=== PATIENT | female | born 1990 | race African-American/Black ===

== ENCOUNTER 2017-03-17 10:38 | Inpatient (IN) | payer MEDICAID ==
[~2017-03-17] VITALS: Ht 172.7 cm; Wt 73.0 kg
[2017-03-17] VITALS (10 sets, daily range): BP systolic 99–150; BP diastolic 49–79; PULSE 57–111; RESP 16–20; TEMP 97.2; O2SAT 99–100
[~2017-03-17 10:38] MED LIST: IBUP-232 PO; ONDA4 PO; OXYC1TAB63 PO; PREN0.01 PO; Z.0.NO CURRENT MEDS
[2017-03-17] MEDS ORDERED: LACTATED RINGER'S 1000 ML INJ 1,000 ML IV ONE (11:30)
[2017-03-17] MEDS ORDERED: LACTATED RINGER'S 1000 ML INJ 1,000 ML IV SCH (12:00)
[2017-03-17 12:01] LABS: AUTOMATED NEUTROPHIL # 6.7 TH/MM3 (1.8-7.7); BASOPHIL % 0.4 % (0.0-2.0); EOSINOPHIL # 0.3 TH/MM3 (0-0.4); EOSINOPHIL % 2.9 % (0.0-4.0); HEMATOCRIT 32.7 % (35.0-46.0); HEMO FLAGS DIFF FINAL; LYMPH % 17.5 % (9.0-44.0); LYMPHOCYTE # 1.6 TH/MM3 (1.0-4.8); MEAN CELL VOLUME 85.9 FL (80.0-100.0); MEAN CORPUSCULAR HEMOGLOBIN 27.7 PG (27.0-34.0); MEAN CORPUSCULAR HGB CONC 32.3 % (32.0-36.0); MONO % 6.2 % (0.0-8.0); PLATELET COUNT 344 TH/MM3 (150-450); WHITE BLOOD COUNT 9.2 TH/MM3 (4.0-11.0)
[2017-03-17 12:24] LABS: BACTERIA, URINE OCC /hpf; BLOOD, URINE NEG (NEG); COMMENT (UR) CULT NOT INDICATED; CULTURE IF INDICATED CULT NOT INDICATED; GLUCOSE,URINE NEG (NEG); KETONE, URINE NEG (NEG); MUCUS URINE FEW /lpf (OCC); NITRITE,URINE NEG (NEG); PH, URINE 6.5 (5.0-8.5); SQUAMOUS EPITHELIAL CELL URINE 3 /hpf (0-5); URINE COLOR LIGHT-YELLOW (YELLW/STRAW)
[2017-03-17] MEDS ORDERED: ceFAZolin 2 GM PREMIX 50 ML IV SCH (12:30)
[2017-03-17] MEDS ORDERED: ACETAMINOPHEN 1000 MG/100 ML 100 ML IV ONE ×2 (12:35→14:15)
[2017-03-17] MEDS ORDERED: CITRIC ACID-SODIUM CITRATE LIQ 30 ML UDC PO SCH (13:00)
[2017-03-17] MEDS ORDERED: DEXAMETHASONE SOD PHOS PF 10 MG/ML VIAL ONE (13:31)
[2017-03-17] MEDS ORDERED: BUPIVACAINE HCL PF 0.5% 30 ML VIAL ONE (13:31)
[2017-03-17] MEDS ORDERED: SODIUM CHLORIDE 0.9% 20 ML VIAL ONE (13:31)
--- NOTE | 2017-03-17 14:13 | PD.OB.DELI ---
Procedure Note Section Procedure Pre Op Diagnosis: (1) History of section, low transverse Post Op Diagnosis: Performed by Festus Davis Procedure: Repeat Low Transverse Sec Indication for delivery: Desired elective repeat Previous condition: None Informed consent obtained: For anesthesia, For procedure Confirmed correct: Patient, Procedure, Site, Time-out taken Anesthesia: Spinal Medication prior to procedure: As documented in eMAR Monitoring during procedure: Blood pressure monitoring Urinary catheter: Inserted using sterile technique Sterile preparation: Duraprep Position: Supine with wedge to left side Operative Features Skin Incision: Transverse Uterine Incision: Low transverse w/knife / blunt ext Membranes Ruptured: Artificially Presentation: Occiput anterior Delivery date: Mar 17, 2017 Delivery time: 13:15 Delivery of : Uneventful : Male One Minute : 8 Five Minute : 9 Weight: 7/7 Status of infant: Viable, Cord blood Placenta delivered: Intact Estimated blood loss: 500 Procedure tolerated: Well Maternal Condition: Stable Condition: Stable Procedure in detail Patient was taken to the operating theater and identified by name band and verbally. A timeout was taken and everyone was in agreement. A spinal anesthetic was administered and a Alejo catheter inserted under sterile technique. She was prepped and draped in the usual sterile fashion. Pfannenstiel incision was made and carried down to the fascia. The fascia was taken off the rectus muscle by blunt and sharp dissection. The peritoneum was entered under direct vision without difficulty. The incision was extended with care to avoid the urinary bladder latter flap was created in the usual fashion. The uterus was then incised along the lower uterine segment and taken down in the midportion until the uterine cavity was entered. Incision was extended bluntly vertex grasped with fundal pressure we were unable to deliver the vertex therefore a Kiwi suction device was used and the vertex delivered without difficulty the hypopharynx and nasopharynx were suctioned to manger the infant delivered without difficulty. It was doubly clamped and cut and handed to the resuscitation team present. Cord blood was obtained and the placenta was delivered manually. The uterus was delivered from the abdomen. Uterine incision was then repaired with 0 Vicryl in a running locking fashion in 2 layers the second layer imbricating the first. Sac was cleaned of blood and debris. The uterus is then delivered back into the abdomen are surgical sites were static rectus muscles were reapproximated together with 0 Vicryl in a running fashion. This repaired with 0 Vicryl from lateral to midline bilaterally in a running fashion the subcutaneous was repaired with 3-0 Vicryl and so cutaneous manner the approximated with a 4-0 Monocryl in a subcuticular manner sterilely dressed and she was taken to the recovery room in satisfactory condition. Lucy Davis MD Mar 17, 2017 14:13
[2017-03-17] MEDS ORDERED: ZOLPIDEM TARTRATE 5 MG TAB PO PRN (14:15)
[2017-03-17] MEDS ORDERED: ONDANSETRON HCL 4 MG/2 ML VIAL IV PUSH PRN (14:15)
[2017-03-17] MEDS ORDERED: SODIUM CHLORIDE 0.9% FLUSH 10 ML FLUSH IV FLUSH PRN (14:15)
[2017-03-17] MEDS ORDERED: SIMETHICONE 80 MG CHEWABLE TAB PO PRN (14:15)
[2017-03-17] MEDS ORDERED: OXYTOCIN 30 UNITS-500ML PREMIX 500 ML IV ONE ×2 (14:15)
[2017-03-17] MEDS ORDERED: DOCUSATE SODIUM 50 MG/SENNA 8.6 MG TAB PO PRN (14:15)
[2017-03-17] MEDS ORDERED: TH S8.6T (14:42)
[2017-03-17] MEDS ORDERED: FERR325T18 PO (14:43)
[2017-03-17] MEDS ORDERED: ONDANSETRON HCL 4 MG/2 ML VIAL ONE (15:18)
[2017-03-17] MEDS ORDERED: KETOROLAC TROMETHAMINE 30 MG/ML (IVP) VIAL ONE (15:33)
[2017-03-17] MEDS ORDERED: KETOROLAC TROMETHAMINE 60 MG/2 ML (IM) VIAL IM ONE (16:00)
--- NOTE | 2017-03-17 18:08 | HHI.HP ---
HPI Chief Complaint Repeat section Date Seen: Mar 17, 2017 Time Seen: 12:22 Travel History International Travel<30 Days: No Contact w/Intl Traveler<30Days: No Known Affected Area: No History of Present Illness HPI This is a 26-year-old female who is 39 weeks today and had a previous section and has declined a after we discussed the risks benefits and alternatives has decided to go with a repeat section Weeks Gestation: 39 Para: 1 : 4 History Past Medical History Narrative Medical Anemia Obstetric History Obstetric History 4 para 1 Past Surgical History Narrative Surgical section 2016 Family History Family History: Negative Social History Alcohol Use: No Tobacco Use: No Substance Abuse: No Allergies-Medications (Allergen,Severity, Reaction): Coded Allergies: Sulfa (Sulfonamide Antibiotics) (Unverified Allergy, Mild, HIVES, 12/10/16) Home Meds Active Scripts Oxycodone-Acetaminophen (Oxycodone-Acetaminophen) 5-325 mg Tab, 1 TAB PO Q4H for moderate pain, #30 TAB Prov:Lucy Davis MD 03/20/16 Ibuprofen (Ibuprofen) 600 Mg Tab, 600 MG PO Q6H for Pain Management, #30 TAB 2 Refills Prov:Lucy Davis MD 03/20/16 Ondansetron Hcl (Zofran 4 Mg Tab) 4 Mg Tab, 4 MG PO Q6HR Y for NAUSEA OR VOMITING, #12 TAB 0 Refills Prov:Kleber Brown MD 07/25/15 Multivit/Min/Fol Ac/Iron/Pren ( Vit ( Plus)) 27 Mg Iron-1 Mg Tab , 1 TAB PO DAILY, #30 Prov:CHEL DASILVA M.D. 06/02/10 Reported Medications Ferrous Sulfate (Ferrous Sulfate) 325 Mg (65 Mg Iron) Tablet, 325 MG PO DAILY for Nutritional Supplement, #30 TAB 0 Refills 03/17/17 Sennosides/Docusate Sodium (Stool Softener Tablet) 8.6 Mg-50 Mg Tablet 03/17/17 Miscellaneous (No Current Meds) Misc 06/02/10 Review of Systems General / Constitutional: Weight Gain Physical Exam Vital Signs Date Time Temp Pulse Resp B/P (MAP) Pulse Ox O2 Delivery O2 Flow Rate FiO2 03/17/17 15:50 97.2 03/17/17 15:20 57 16 150/74 (99) 99 03/17/17 14:53 71 16 123/72 (89) 100 03/17/17 14:38 100 03/17/17 14:22 67 18 99/49 (66) 100 03/17/17 10:56 111 129/79 (96) Narrative GENERAL: Well-nourished, well-developed patient. SKIN: Warm and dry. HEAD: Normocephalic and atraumatic. EYES: No scleral icterus. No injection or drainage. ENT: No nasal drainage noted. Mucous membranes pink. Airway patent. NECK: Supple, trachea midline. No JVD. CARDIOVASCULAR: Regular rate and rhythm without murmurs, gallops, or rubs. RESPIRATORY: Breath sounds equal bilaterally. No accessory muscle use. BREASTS: Bilateral exam showed no masses , no retractions, no nipple discharge. ABDOMEN/GI: Abdomen soft, non-tender, bowel sounds present, no rebound, no guarding scar well-healed Gravid to [39-] weeks size Fundal Height: [39-] GENITOURINARy deferred FHT's: Category: [1-] Baseline: [-] Reactive: [-] Variability: [-] Decels: [-] EXTREMITIES: No cyanosis or edema. BACK: Nontender without obvious deformity. No CVA tenderness. NEUROLOGICAL: Awake and alert. Motor and sensory grossly within normal limits. Five out of 5 muscle strength in all muscle groups. Normal speech. Caprini VTE Risk Assessment Caprini VTE Risk Assessment: Mod/High Risk (score >= 2) Caprini Risk Assessment Model Point Value = 1 Point Value = 2 Point Value = 3 Point Value = 5 Age 41-60 Minor surgery BMI > 25 kg/m2 Swollen legs Varicose veins or History of unexplained or recurrent spontaneous Oral contraceptives or hormone replacement Sepsis (< 1 month) Serious lung disease, including pneumonia (< 1 month) Abnormal pulmonary function Acute myocardial infarction Congestive heart failure (< 1 month) History of inflammatory bowel disease Medical patient at bed rest Age 61-74 Arthroscopic surgery Major open surgery (> 45 min) Laparoscopic surgery (> 45 min) Malignancy Confined to bed (> 72 hours) Immobilizing plaster cast Central venous access Age >= 75 History of VTE Family history of VTE Factor V Leiden Prothrombin [id number] Lupus anticoagulant Anticardiolipin antibodies Elevated serum homocysteine Heparin-induced thrombocytopenia Other congenital or acquired thrombophilia Stroke (< 1 month) Elective arthroplasty Hip, pelvis, or leg fracture Acute spinal cord injury (< 1 month) Prophylaxis Regimen Total Risk Factor Score Risk Level Prophylaxis Regimen 0-1 Low Early ambulation 2 Moderate Order ONE of the following: *Sequential Compression Device (SCD) *Heparin 5000 units SQ BID 3-4 Higher Order ONE of the following medications: *Heparin 5000 units SQ TID *Enoxaparin/Lovenox 40 mg SQ daily (WT < 150 kg, CrCl > 30 mL/min) *Enoxaparin/Lovenox 30 mg SQ daily (WT < 150 kg, CrCl > 10-29 mL/min) *Enoxaparin/Lovenox 30 mg SQ BID (WT < 150 kg, CrCl > 30 mL/min) AND/OR *Sequential Compression Device (SCD) 5 or more Highest Order ONE of the following medications: *Heparin 5000 units SQ TID (Preferred with Epidurals) *Enoxaparin/Lovenox 40 mg SQ daily (WT < 150 kg, CrCl > 30 mL/min) *Enoxaparin/Lovenox 30 mg SQ daily (WT < 150 kg, CrCl > 10-29 mL/min) *Enoxaparin/Lovenox 30 mg SQ BID (WT < 150 kg, CrCl > 30 mL/min) AND *Sequential Compression Device (SCD) Data Data Vital Signs Reviewed: Yes Orders Orders Admit To Inpatient (03/17/17 ) Code Status (03/17/17 11:30) Lactated Ringer's 1000 Ml Inj (Lr 1000 M (03/17/17 11:30) Lactated Ringer's 1000 Ml Inj (Lr 1000 M (03/17/17 12:00) Cefazolin 2 Gm Premix (Ancef 2 Gm Premix (03/17/17 12:30) Citric Acid-Sodium Citrate Liq (Bicitra (03/17/17 13:00) Type And Screen (03/17/17 11:30) Complete Blood Count With Diff (03/17/17 11:30) Urinalysis - C+S If Indicated (03/17/17 11:30) Drug Screen, Random Urine (03/17/17 11:30) Inpatient Certification (03/17/17 ) Ywymwgxf-Rbz-Nxdsw-Iron Prenat (Stuartna (03/18/17 09:00) Acetaminophen 1000 Mg/100 Ml (irmev 10 (03/17/17 12:35) Bupivacaine Pf 0.5% Inj (Marcaine Pf 0.5 (03/17/17 13:31) Sodium Chloride 0.9% Inj (Sodium Chlorid (03/17/17 13:31) Dexamethasone Pf Inj (Decadron Pf Inj) (03/17/17 13:31) Fentanyl Inj (Fentanyl Inj) (03/17/17 14:07) Oxytocin 30 Units-500ml Premix (Pitocin (03/17/17 14:15) Vital Signs (Adult) Q4HX24,Q12H (03/17/17 14:13) Activity Bed Rest (03/17/17 14:13) ^ Discontinue (03/18/17 14:13) Remove Dressing (03/18/17 14:13) ^ Rhogam (03/17/17 14:13) Diet Regular Basic (03/17/17 Dinner) Lactated Ringer's 1000 Ml Inj (Lr 1000 M (03/17/17 19:13) Oxytocin 30 Units-500ml Premix (Pitocin (03/17/17 14:15) Oxytocin 30 Units-500ml Premix (Pitocin (03/18/17 00:15) Sodium Chloride 0.9% Flush (Ns Flush) (03/17/17 21:00) Sodium Chloride 0.9% Flush (Ns Flush) (03/17/17 14:15) Simethicone Chew (Mylicon Chew) (03/17/17 14:15) Acetaminophen 1000 Mg/100 Ml (Ofirmev 10 (03/17/17 14:15) Ibuprofen (Motrin) (03/17/17 14:15) Oxycodone-Acetamin 5-325 Mg (Percocet (03/17/17 14:15) Oxycodone-Acetamin 5-325 Mg (Percocet (03/17/17 14:15) Cefazolin Inj (Ancef Inj) (03/17/17 21:00) Docusate Sodium-Senna (Lida-Colace) (03/17/17 14:15) Zolpidem (Ambien) (03/17/17 14:15) Pddwruq-Vgfym-Cmufluk Inj (M-M-R Ii Inj) (03/18/17 16:00) Ecvo-Oxx-Qqxplq (Booster) Inj (Boostrix (03/18/17 16:00) Complete Blood Count With Diff (03/18/17 06:00) Ondansetron Inj (Zofran Inj) (03/17/17 14:15) Remove Urinary Catheter .ONCE (03/18/17 14:13) Ondansetron Inj (Zofran Inj) (03/17/17 15:18) Ketorolac Inj (Toradol Inj) (03/17/17 15:33) ^ No Systemic Narcotics (03/17/17 ) ^ Epidural Alert (03/17/17 ) Anticoagulant Alert (03/17/17 ) ^ Treatment Of Side Effects (03/17/17 ) ^ Discontinue Following Orders (03/17/17 ) ^ Monitor (03/17/17 ) Notify Dr: Respiratory Rate (03/17/17 ) ^ Notify Of These Side Effects (03/17/17 ) Ketorolac Inj (Toradol Inj) (03/17/17 16:00) Group B Strep: Negative Labs Laboratory Tests Test 03/17/17 10:35 03/17/17 11:16 Urine Color LIGHT-YELLOW Urine Turbidity CLEAR Urine pH 6.5 Urine Specific [place] 1.010 Urine Protein NEG Urine Glucose (UA) NEG Urine Ketones NEG Urine Occult Blood NEG Urine Nitrite NEG Urine Bilirubin NEG Urine Urobilinogen LESS THAN 2.0 Urine Leukocyte Esterase LARGE Urine RBC LESS THAN 1 Urine WBC 5 Urine Squamous Epithelial Cells 3 Urine Bacteria OCC Urine Mucus FEW Microscopic Urinalysis Comment CULT NOT INDICATED Urine Opiates Screen NEG Urine Barbiturates Screen NEG Urine Amphetamines Screen NEG Urine Benzodiazepines Screen NEG Urine Cocaine Screen NEG Urine Cannabinoids Screen NEG White Blood Count 9.2 Red Blood Count 3.80 Hemoglobin 10.5 Hematocrit 32.7 Mean Corpuscular Volume 85.9 Mean Corpuscular Hemoglobin 27.7 Mean Corpuscular Hemoglobin Concent 32.3 Red Cell Distribution Width 18.0 Platelet Count 344 Mean Platelet Volume 7.4 Neutrophils (%) (Auto) 73.0 Lymphocytes (%) (Auto) 17.5 Monocytes (%) (Auto) 6.2 Eosinophils (%) (Auto) 2.9 Basophils (%) (Auto) 0.4 Neutrophils # (Auto) 6.7 Lymphocytes # (Auto) 1.6 Monocytes # (Auto) 0.6 Eosinophils # (Auto) 0.3 Basophils # (Auto) 0.0 CBC Comment DIFF FINAL Differential Comment Assessment/Plan Assessment and Plan 1. Uterine at 39 weeks 2. section desires repeat 3. She have anemia very difficult time getting her in to the garment folder. We will check her postop white count and act on that accordingly Lucy Davis MD Mar 17, 2017 18:08
[2017-03-17] MEDS ORDERED: PROMETHAZINE INJ 25 MG/ML VIAL IM PRN (18:15)
[2017-03-17] MEDS: SODIUM CHLORIDE 0.9% FLUSH 10 ML FLUSH IV FLUSH SCH (21:00)
[2017-03-17] MEDS: LACTATED RINGER'S 1000 ML INJ 1,000 ML IV SCH (21:45)
[2017-03-17] MEDS: IBUPROFEN 600 MG TAB PO PRN (21:52)
[2017-03-18] VITALS (7 sets, daily range): BP systolic 99–121; BP diastolic 49–78; PULSE 68–87; RESP 16–18; TEMP 98.1–98.7
[2017-03-18] MEDS ORDERED: OXYTOCIN 30 UNITS-500ML PREMIX 500 ML IV PRN (00:15)
[2017-03-18] MEDS: LACTATED RINGER'S 1000 ML INJ 1,000 ML IV SCH (04:34)
[2017-03-18] MEDS: IBUPROFEN 600 MG TAB PO PRN ×3 (05:10→19:26)
[2017-03-18] MEDS: oxyCODONE/ACETAMINOPHEN 5 MG/325 MG TAB PO PRN ×4 (05:10→19:26)
[2017-03-18 06:00] LABS: AUTOMATED NEUTROPHIL # 13.3 TH/MM3 (1.8-7.7); BASOPHIL % 0.1 % (0.0-2.0); HEMATOCRIT 27.2 % (35.0-46.0); HEMO FLAGS DIFF FINAL; LYMPH % 9.5 % (9.0-44.0); LYMPHOCYTE # 1.5 TH/MM3 (1.0-4.8); MEAN CELL VOLUME 85.9 FL (80.0-100.0); MEAN CORPUSCULAR HEMOGLOBIN 27.9 PG (27.0-34.0); MEAN CORPUSCULAR HGB CONC 32.5 % (32.0-36.0); MONO % 7.1 % (0.0-8.0); NEUT % 83.3 % (16.0-70.0); PLATELET COUNT 304 TH/MM3 (150-450); RED BLOOD COUNT 3.16 MIL/MM3 (4.00-5.30); RED CELL DISTRIBUTION WIDTH 17.6 % (11.6-17.2)
[2017-03-18] MEDS ORDERED: MULTIVIT/MIN/PREN/FOL AC/IRON PRENATAL TAB PO SCH (09:00)
--- NOTE | 2017-03-18 10:13 | HHI.OB ---
Subjective Post Operative Day: 1 Objective Vitals/I&O Vital Signs Date Time Temp Pulse Resp B/P (MAP) Pulse Ox O2 Delivery O2 Flow Rate FiO2 03/18/17 08:00 78 112/49 (70) 03/18/17 08:00 98.3 68 16 112/71 (85) 03/18/17 04:30 98.7 87 18 99/56 (70) 03/18/17 03:30 16 03/18/17 01:30 18 03/18/17 00:30 98.1 03/18/17 00:30 106/78 (87) 03/18/17 00:30 105/64 (78) 03/17/17 23:30 20 03/17/17 22:30 18 03/17/17 21:30 18 03/17/17 19:30 20 03/17/17 15:50 97.2 03/17/17 15:20 57 16 150/74 (99) 99 03/17/17 14:53 71 16 123/72 (89) 100 03/17/17 14:38 100 03/17/17 14:22 67 18 99/49 (66) 100 03/17/17 10:56 111 129/79 (96) Result Diagram: 03/18/17 0431 Objective Remarks GENERAL: Well-nourished, well-developed patient. CARDIOVASCULAR: Regular rate and rhythm without murmurs, gallops, or rubs. RESPIRATORY: Breath sounds equal bilaterally. No accessory muscle use. ABDOMEN/GI: Abdomen soft, non-tender, bowel sounds present. Incision: dressing, Clean, dry and intact. Fundus: Firm, non-tender at umbilicus. GENITOURINARY: Light to moderate bleeding. EXTREMITIES: No cyanosis or edema, non-tender, without signs of DVT. Medications and IVs Current Medications Medications (Trade) Dose Ordered Sig/Mendez Route Start Time Stop Time Status Last Admin Lactated Ringer's 1,000 ml @ 100 mls/hr Q10H IV 03/17/17 19:13 03/18/17 15:12 03/17/17 21:45 Oxytocin 500 ml @ 100 mls/hr UNSCH X1 PRN IV 03/18/17 00:15 03/19/17 00:14 (NS Flush) 2 ml BID IV FLUSH 03/17/17 21:00 (NS Flush) 2 ml UNSCH PRN IV FLUSH 03/17/17 14:15 (Mylicon Chew) 80 mg QID PRN PO 03/17/17 14:15 (Motrin) 600 mg Q6H PRN PO 03/17/17 14:15 03/18/17 05:10 (Percocet 5-325 Mg) 1 tab Q4H PRN PO 03/17/17 14:15 03/18/17 09:43 (Percocet 5-325 Mg) 2 tab Q4H PRN PO 03/17/17 14:15 03/18/17 05:10 (Lida-Colace) 2 tab Q12H PRN PO 03/17/17 14:15 (Ambien) 5 mg HS PRN PO 03/17/17 14:15 (M-M-R Ii Inj) 0.5 ml ONCE ONCE SQ 03/18/17 16:00 03/18/17 16:01 (Boostrix Inj) 0.5 ml ONCE ONCE IM 03/18/17 16:00 03/18/17 16:01 (Zofran Inj) 4 mg Q6H PRN IV PUSH 03/17/17 14:15 (Phenergan Inj) 25 mg Q6H PRN IM 03/17/17 18:15 03/17/17 18:19 Assessment/Plan Problem List: (1) S/P repeat low transverse ICD Codes: Z98.891 - History of uterine scar from previous surgery (2) Anemia ICD Codes: D64.9 - Anemia, unspecified Status: Acute Assessment and Plan POD#1 pt doing well hgb 8.8 will give Venofer iv pain well managed with oral pain medication will shower today pt bonding with infant routine care Discharge Planning dc in 1-2 days Eladia Wilkins Mar 18, 2017 10:13
[2017-03-18] MEDS: IRON SUCROSE INJ 200 MG in SODIUM CHLORIDE 0.9% INJ 100 ML IV SCH (11:31)
[2017-03-18] MEDS ORDERED: DIPHTH/TETANUS/ACEL PERTUSSIS (BOOSTER) 0.5 ML VIAL/PFS IM ONE (16:00)
[2017-03-18] MEDS ORDERED: MEASLES, MUMPS, RUBELLA VACCINE 0.5 ML VIAL SQ ONE (16:00)
[2017-03-18] MEDS: SODIUM CHLORIDE 0.9% FLUSH 10 ML FLUSH IV FLUSH SCH (19:21)
[2017-03-19] MEDS: oxyCODONE/ACETAMINOPHEN 5 MG/325 MG TAB PO PRN ×3 (03:12→13:50)
[2017-03-19] MEDS: IBUPROFEN 600 MG TAB PO PRN ×2 (03:12→09:56)
[2017-03-19 08:30] VITALS: BP 103/64; PULSE 84; RESP 18; TEMP 98
[2017-03-19] MEDS: SODIUM CHLORIDE 0.9% FLUSH 10 ML FLUSH IV FLUSH SCH (08:42)
[2017-03-19] MEDS: IRON SUCROSE INJ 200 MG in SODIUM CHLORIDE 0.9% INJ 100 ML IV SCH (08:46)
--- NOTE | 2017-03-19 11:11 | HHI.OB ---
Subjective Post Operative Day: 2 Objective Vitals/I&O Vital Signs Date Time Temp Pulse Resp B/P (MAP) Pulse Ox O2 Delivery O2 Flow Rate FiO2 03/19/17 08:30 98.0 84 18 103/64 (77) 03/18/17 19:50 98.4 82 16 121/78 (92) 03/18/17 12:00 98.5 87 16 114/64 (81) Result Diagram: 03/18/17 043 Objective Remarks GENERAL: Well-nourished, well-developed patient. CARDIOVASCULAR: Regular rate and rhythm without murmurs, gallops, or rubs. RESPIRATORY: Breath sounds equal bilaterally. No accessory muscle use. ABDOMEN/GI: Abdomen soft, non-tender, bowel sounds present. Incision: Clean, dry and intact. Fundus: Firm, non-tender at umbilicus. GENITOURINARY: Light to moderate bleeding. EXTREMITIES: No cyanosis or edema, non-tender, without signs of DVT. Medications and IVs Current Medications Medications (Trade) Dose Ordered Sig/Mendez Route Start Time Stop Time Status Last Admin (NS Flush) 2 ml BID IV FLUSH 03/17/17 21:00 03/19/17 08:42 (NS Flush) 2 ml UNSCH PRN IV FLUSH 03/17/17 14:15 (Mylicon Chew) 80 mg QID PRN PO 03/17/17 14:15 03/18/17 12:36 (Motrin) 600 mg Q6H PRN PO 03/17/17 14:15 03/19/17 09:56 (Percocet 5-325 Mg) 1 tab Q4H PRN PO 03/17/17 14:15 03/18/17 13:34 (Percocet 5-325 Mg) 2 tab Q4H PRN PO 03/17/17 14:15 03/19/17 08:41 (Lida-Colace) 2 tab Q12H PRN PO 03/17/17 14:15 03/18/17 12:37 (Ambien) 5 mg HS PRN PO 03/17/17 14:15 (Zofran Inj) 4 mg Q6H PRN IV PUSH 03/17/17 14:15 (Phenergan Inj) 25 mg Q6H PRN IM 03/17/17 18:15 03/17/17 18:19 Iron Sucrose 200 mg/Sodium Chloride 110 ml @ 110 mls/hr DAILY IV 03/18/17 11:00 03/20/17 09:59 03/19/17 08:46 Assessment/Plan Problem List: (1) S/P repeat low transverse ICD Codes: Z98.891 - History of uterine scar from previous surgery (2) Anemia ICD Codes: D64.9 - Anemia, unspecified Status: Acute Assessment and Plan POD#2 pt doing well c/o of a little more pain than yesterday, pain medication encouraged anemia-pt denies dizziness, sob but stated yesterday had some chest pain ( pointing to right shoulder) that was relieved after taking a gas pill pt will receive Venofer today and tomorrow passing gas today encouraged to ambulate more pt bonding with routine care Discharge Planning dc tomorrow Eladia Wilkins Mar 19, 2017 11:11
--- NOTE | 2017-03-19 11:21 | HHI.DCPOC ---
Discharge Care Plan Diagnosis: (1) Anemia (2) S/P repeat low transverse Your Health Problems Are: delivery Report Symptoms to Your Doctor -Temperature above 100.5 degrees -Redness, of incision or excessive or foul smelling drainage -Unusual pain or calf pain -Increased vaginal bleeding -Painful or difficulty urinating -Feelings of extreme sadness or anxiety after 2 weeks Goals to Promote Your Health * To prevent worsening of your condition and complications * To maintain your health at the optimal level Directions to Meet Your Goals Take your medications as prescribed Follow your dietary instruction Follow activity as directed Ensure plenty of rest for recovery Drink fluids for hydration Keep your appointments as scheduled Take your immunizations and boosters as scheduled If your symptoms worsen call your PCP, if no PCP go to Urgent Care Center or Emergency Room Smoking is Dangerous to Your Health. Avoid second hand smoke Call the 24-hour crisis hotline for domestic abuse at Eladia Wilkins Mar 19, 2017 11:21
[2017-03-19] MEDS ORDERED: OXYC1TAB63 PO (16:12)
[2017-03-19] MEDS ORDERED: IBUP-232 PO (16:12)
== END 2017-03-19 18:46 | disposition home or self-care (01) | DRG 766 ==
LOC: H2EB 10:38 → H1EA 16:03
PROVIDERS: ADMIT Obstetrics & Gynecology; ATTEND Obstetrics & Gynecology
PROC: 10D00Z1 Extraction of Products of Conception, Low, Open Approach (ICD-10-PCS; principal; 2017-03-17)
DX: O34.211 Maternal care for low transverse scar from previous cesarean delivery (principal); O99.02 Anemia complicating childbirth; D64.9 Anemia, unspecified; Z37.0 Single live birth; Z3A.39 39 weeks gestation of pregnancy; Z88.2 Allergy status to sulfonamides
CPT/HCPCS: 59025; 80307; 81001; 85025; 86850; 86900; 86901; J0131; J0690; J1100; J1756; J1885; J2405; J2550; J3010; J7120